=== PATIENT | male | born 2000 | race Caucasian/White ===

== ENCOUNTER 2024-01-29 16:32 | Inpatient (IN) | payer OTHER ==
[2024-01-29 17:21] VITALS: BMI 20.9
[2024-01-29] MEDS ORDERED: BENZONATATE 200 MG CAPSULE PO PRN (18:49)
[2024-01-29] MEDS ORDERED: IBUPROFEN 400 MG TABLET (FP) PO PRN (18:49)
[2024-01-29] MEDS ORDERED: POLYETHYLENE GLYCOL (HEALTHYLAX) 3350 17 GM PACKET PO PRN (18:49)
[2024-01-29] MEDS ORDERED: ACETAMINOPHEN 325 MG TABLET (FP) PO PRN (18:49)
[2024-01-29] MEDS ORDERED: NICOTINE POLACRILEX 2 MG LOZENGE BC PRN (18:49)
[2024-01-29] MEDS ORDERED: guaiFENesin 600 MG TABLET.ER (FP) PO PRN (18:49)
[2024-01-29] MEDS ORDERED: MAG HYDROX/AL HYDROX/SIMETH 30 ML UNIT-DOSE CUP PO PRN (18:49)
[2024-01-29] MEDS ORDERED: LOPERAMIDE HCL 2 MG CAPSULE PO PRN (18:49)
[2024-01-29] MEDS ORDERED: MAGNESIUM HYDROX 2400MG/30ML ORAL SUSPENSION 30 ML CUP PO PRN (18:49)
[2024-01-29] MEDS ORDERED: BENZOCAINE/MENTHOL (CHLORASEPTIC ) LOZENGE MM PRN (18:49)
[2024-01-29] MEDS ORDERED: TUBERCULIN PPD 5 TU/0.1ML VIAL ID ONE (21:53)
[2024-01-29] MEDS: TUBERCULIN PPD 5 TU/0.1ML SYRINGE (IN PATIENT USE ONLY) ID ONE (22:01)
[2024-01-29] MEDS: THIAMINE 100 MG TABLET PO SCH (22:04)
[2024-01-29] MEDS: MELATONIN 5 MG TABLETS PO SCH (22:04)
[2024-01-29] MEDS: IBUPROFEN 600 MG TABLET (FP) PO PRN (22:21)
[2024-01-30] MEDS: PRENATAL VITAMINS W/ FOLIC ACID TABLET (FP) PO SCH (10:17)
[2024-01-30 11:45] LABS: CHLORIDE 99 mmol/L (98-107); POTASSIUM 4.3 mmol/L (3.5-5.1); SODIUM 138 mmol/L (136-145)
[2024-01-30 11:49] LABS: HEMATOCRIT 42.6 % (35.4-49); HEMOGLOBIN 15.4 GM/dL (11.7-16.9); MCH 29.9 pg (25.7-33.7); MCHC 36.1 g/dl (32.0-35.9); MEAN CELL VOLUME 82.9 fl (80-96); MEAN PLT VOLUME 8.1 fl (7.5-11.1); PLATELET COUNT 296 10^3/uL (134-434); RBC 5.14 M/mm3 (4.00-5.60); WHITE BLOOD COUNT 5.8 K/mm3 (4.0-10.0)
[2024-01-30 11:56] LABS: PH,URINE 5.5 (5.0-8.0); URINE APPEARANCE CLEAR; URINE BILIRUBIN NEGATIVE (NEGATIVE); URINE COLOR YELLOW; URINE GLUCOSE (UA) NEGATIVE (NEGATIVE); URINE KETONE 2+ (NEGATIVE); URINE LEUK ESTERASE NEGATIVE (NEGATIVE); URINE NITRITE NEGATIVE (NEGATIVE); URINE PROTEIN TRACE (NEGATIVE); URINE UROBILINOGEN 0.2 mg/dL (0.2-1.0)
[2024-01-30 11:57] LABS: ALBUMIN 4.9 g/dl (3.4-5.0); ANION GAP 11 mmol/L (4-13); BLOOD UREA NITROGEN 11.2 mg/dL (7-18); CO2 28 mmol/L (21-32); GLUCOSE,RANDOM 115 mg/dL (74-106)
[2024-01-30 12:00] LABS: BILIRUBIN,TOTAL 2.2 mg/dL (0.2-1); CREATININE 0.9 mg/dL (0.55-1.3); SGOT/AST 35 U/L (15-37); SGPT/ALT 30 U/L (13-61)
[2024-01-30 12:02] LABS: TOT PROT 8.3 g/dl (6.4-8.2)
[2024-01-30 12:03] LABS: ALK PHOS 108 U/L (45-117)
[2024-01-30 12:06] LABS: SYPHILIS W/ RPR CONF NON-REACTIVE (NONREACTIVE)
[2024-01-30] MEDS: hydrOXYzine PAMOATE 25 MG CAPSULE (FP) PO PRN (12:34)
[2024-01-30] MEDS: MELATONIN 5 MG TABLETS PO SCH (21:28)
[2024-02-04] MEDS: SUVOREXANT 10 MG TABLET PO PRN (21:11)
[2024-02-06 07:14] VITALS: RESP 18
[2024-02-07] MEDS: SUVOREXANT 10 MG TABLET PO PRN (21:23)
[2024-02-07] MEDS: NICOTINE POLACRILEX 2 MG GUM BUC PRN (21:24)
[2024-02-09 07:11] VITALS: BP 131/76; PULSE 73; TEMP 97.8
== END 2024-02-09 10:15 | disposition home or self-care (01) | DRG 772 ==
LOC: YASAS 16:32 → Y5N 18:57
PROVIDERS: ADMIT Allergy & Immunology; ATTEND Psychiatry & Neurology Pain Medicine
PROC: HZ42ZZZ Group Counseling for Substance Abuse Treatment, Cognitive-Behavioral (ICD-10-PCS; principal; 2024-01-29)
DX: F10.20 Alcohol dependence, uncomplicated (principal); F12.20 Cannabis dependence, uncomplicated; F17.210 Nicotine dependence, cigarettes, uncomplicated; G47.00 Insomnia, unspecified; Z86.19 Personal history of other infectious and parasitic diseases
CPT/HCPCS: 36415; 80053; 80305; 80307; 81003; 85027; 86780; 86803; 87811; 93005; 93010